=== PATIENT | male | born 1975 | race Caucasian/White ===

== ENCOUNTER 2020-01-04 12:07 | Emergency (ER) | payer OTHER ==
[~2020-01-04] VITALS: Ht 160 cm; Wt 63.5 kg
[2020-01-04 12:32] VITALS: BP_SYST 133
--- NOTE | 2020-01-04 12:39 | NUR ---
Pt sts ate [place] on an empty stomach approx 10AM; has also taken an Aspirin for pain w/o food earlier this date; pt sts hx of GERD/Reflux and Hiatal hernia; EKG taken, noted to be Sinus Tachycardia, per report; pt prep for further eval
--- NOTE | 2020-01-04 12:45 | NUR ---
Pt walked in to ER with c/o heartburn x 1 day. Reports history of GERD and does not have any of his medications at home. V/S stable, pt is afebrile. Currently resting in bed, will continue to monitor.
--- NOTE | 2020-01-04 12:55 | NUR ---
ER Dr. Mancia at bedside examining patient.
[2020-01-04] MEDS ORDERED: FAMOTIDINE 20 MG TABLET PO ONE (13:15)
[2020-01-04 13:31] VITALS: BP_SYST 133
--- NOTE | 2020-01-04 13:32 | NUR ---
Patient given written and verbal discharge instructions and verbalizes understanding. ER MD discussed with patient the results and treatment provided. Patient in stable condition. ID arm band removed. Rx of Nexium given. Patient educated on pain management and to follow up with PMD. Pain Scale 0. Opportunity for questions provided and answered. Medication side effect fact sheet provided. Discharged by Dr. Mancia
== END 2020-01-04 13:32 | disposition home or self-care (01) ==
LOC: SED 12:07
DX: K21.9 Gastro-esophageal reflux disease without esophagitis (principal); F17.210 Nicotine dependence, cigarettes, uncomplicated
CPT/HCPCS: 93005; 99283

== ENCOUNTER 2020-01-23 18:03 | Emergency (ER) | payer OTHER ==
[~2020-01-23] VITALS: Ht 160 cm; Wt 64.0 kg
[2020-01-23 18:08] VITALS: BP_SYST 158
[2020-01-23 19:25] VITALS: BP_SYST 122
== END 2020-01-23 18:54 | disposition home or self-care (01) ==
LOC: SED 18:03
DX: M79.602 Pain in left arm (principal)
CPT/HCPCS: 93005; 99283